=== PATIENT | female | born 1980 | race Caucasian/White ===

== ENCOUNTER → 2019-03-31 08:10 | Outpatient (CLI) | payer MEDICAID ==
[2016-10-29 06:06] VITALS: BMI 19.4
[~2019-03-31 08:10] MED LIST: HYDROCODONE-APA1 TAB PO; NAPROSYN500 MG PO; OMEPRAZOLE40 MG PO; PROZAC20 MG PO; TOPAMAX100 MG PO
== END | disposition home or self-care (01) ==
LOC: D.US 08:00
PROVIDERS: ATTEND Nurse Practitioner Family
DX: R10.9 Unspecified abdominal pain (principal)

== ENCOUNTER 2021-01-10 08:41 | Emergency (ER) | payer MEDICAID ==
[~2021-01-10] VITALS: Ht 157.5 cm; Wt 52.3 kg
[~2021-01-10 08:41] MED LIST changes: +ALBUTEROL SULF8.5 GM INH; +DECADRON4 MG PO; +MUCINEX600 MG PO; +ZOFRAN ODT4 MG/UDTAB PO; +ZPAK PO
[2021-01-10 08:45] VITALS: BP 146/84; Ht 157.5 cm; Wt 52.3 kg
[2021-01-10] MEDS ORDERED: PROTONIX40 MG PO (08:47)
[2021-01-10 09:39] LABS: INFLUENZA TYPE A NEGATIVE (NEGATIVE); INFLUENZA TYPE B NEGATIVE (NEGATIVE)
[2021-01-10] MEDS ORDERED: AUGMENTIN 875-11 TAB PO (10:16)
[2021-01-10] MEDS ORDERED: FLUTICASONE PRO16 GM NASAL (10:16)
== END 2021-01-10 11:01 | disposition home or self-care (01) ==
LOC: D.ER 08:41
PROVIDERS: Family Medicine
DX: J01.90 Acute sinusitis, unspecified (principal); K21.9 Gastro-esophageal reflux disease without esophagitis; R51.9 Headache, unspecified; R50.9 Fever, unspecified

== ENCOUNTER 2021-01-10 16:28 | Emergency (ER) | payer MEDICAID ==
[~2021-01-10] VITALS: Ht 157.5 cm; Wt 52.3 kg
[~2021-01-10 16:28] MED LIST changes: +AUGMENTIN 875-11 TAB PO; +FLUTICASONE PRO16 GM NASAL; +PROTONIX40 MG PO
[2021-01-10 16:35] VITALS: BP 118/77; Ht 157.5 cm; Wt 52.3 kg
[2021-01-10 17:10] LABS: UDS - AMPHET NEGATIVE QUAL (NEGATIVE); UDS - BARB NEGATIVE QUAL (NEGATIVE); UDS - BENZO NEGATIVE QUAL (NEGATIVE); UDS - COCAINE NEGATIVE QUAL (NEGATIVE); UDS - OPIATE NEGATIVE QUAL (NEGATIVE); UDS - PCP NEGATIVE QUAL (NEGATIVE); UDS - THC POSITIVE QUAL (NEGATIVE)
[2021-01-10 17:18] LABS: BASOPHILS 0.3 % (0-2); EOSINOPHILS 0.6 % (0-7); HEMATOCRIT 38.5 % (36.0-48.0); HEMOGLOBIN 13.1 g/dL (12-16); IMMATURE GRANULOCYTES 0.2 % (0-5); LYMPHOCYTE ABS# 2.34 10x3/uL (1.18-3.74); LYMPHOCYTES 21.7 % (15-50); MCH 31.3 pg (26.0-34.0); MCV 91.9 fL (80.0-100.0); MEAN PLATELET VOLUME 9.5 fL (7.4-10.4); MONOCYTES 5.7 % (2-11); NEUTROPHIL ABS# 7.72 10x3/uL (1.56-6.13); NEUTROPHILS 71.5 % (40-80); RBC 4.19 10x6/uL (4.00-5.40); WBC 10.8 10x3/uL (4.8-10.8)
[2021-01-10 17:19] LABS: BILIRUBIN NEGATIVE (NEGATIVE); KETONE MODERATE mg/dL (NEGATIVE); NITRITE NEGATIVE (NEGATIVE); UROBILINOGEN NORMAL mg/dL (< 2)
[2021-01-10 17:20] LABS: BACTERIA FEW HPF (NONE SEEN); SQUAMOUS EPITHELIAL 0-5 HPF (0-4); WHITE CELLS - URINE 0-5 HPF (0-4)
[2021-01-10 17:22] LABS: HCG URINE NEGATIVE (NEGATIVE)
[2021-01-10 17:23] LABS: PLATELET COUNT 309 10x3/uL (130-400)
[2021-01-10 17:27] LABS: CALC OSMOLALITY 272 mosm/kg (275-300); CALCIUM 9.4 mg/dL (8.5-10.1); CARBON DIOXIDE 23.9 mmol/L (21.0-32.0); CHLORIDE - SERUM 102 mmol/L (98-107); CREATININE - SERUM 0.9 mg/dL (0.6-1.3); GLUCOSE 103 mg/dL (74-106); POTASSIUM - SERUM 3.7 mmol/L (3.5-5.1); SODIUM 137 mmol/L (136-145); UREA NITROGEN 9 mg/dL (7-18); eGFR NON AFRICAN AMERICAN 73 mL/min (90-120)
[2021-01-10 17:35] LABS: ALBUMIN 4.4 g/dL (3.4-5.0); ALKALINE PHOSPHATASE 67 U/L (30-120); ALT (SGPT) 30 U/L (10-68); BILIRUBIN - TOTAL 0.65 mg/dL (0.2-1.3); MAGNESIUM - SERUM 1.9 mg/dL (1.8-2.4); PROTEIN - SERUM 7.9 g/dL (6.4-8.2); TROPONIN-I < 0.017 ng/mL (0.000-0.060)
== END 2021-01-10 17:50 | disposition home or self-care (01) ==
LOC: D.ER 16:28
PROVIDERS: Family Medicine
DX: J32.9 Chronic sinusitis, unspecified (principal); R61 Generalized hyperhidrosis; N39.0 Urinary tract infection, site not specified; F12.10 Cannabis abuse, uncomplicated; K21.9 Gastro-esophageal reflux disease without esophagitis

== ENCOUNTER → 2021-03-31 12:43 | Outpatient (CLI) | payer MEDICAID ==
[2021-01-10 16:35] VITALS: BMI 21.0
== END | disposition home or self-care (01) ==
LOC: D.HCCARDIO 12:43
PROVIDERS: ATTEND Internal Medicine Cardiovascular Disease
DX: I20.9 Angina pectoris, unspecified (principal)